=== PATIENT | female | born 1955 | race Caucasian/White ===

== ENCOUNTER 2024-04-17 12:25 | Outpatient (CLI) | payer OTHER | END 2024-04-17 12:26 | disposition home or self-care (01) | LOC: CSHULT 12:25 | PROVIDERS: ATTEND Internal Medicine Hematology & Oncology | DX: C50.812 Malignant neoplasm of overlapping sites of left female breast (principal); I42.7 Cardiomyopathy due to drug and external agent; Z79.60 Long term (current) use of unspecified immunomodulators and immunosuppressants; I34.0 Nonrheumatic mitral (valve) insufficiency; I51.9 Heart disease, unspecified | CPT/HCPCS: 93306 ==